=== PATIENT | male | born 1970 | race Hispanic/Latino ===

== ENCOUNTER 2019-10-03 07:53 | Day surgery (SDC) | payer SELFPAY ==
[2019-10-01 10:48] VITALS: BMI 29.6
[2019-10-03] MEDS ORDERED: Ondansetron PF 4 MG/2 ML Vial ONE (09:21)
[2019-10-03] MEDS ORDERED: Dexamethasone 20 MG/5 ML VIAL ONE (09:21)
[2019-10-03] MEDS ORDERED: Glycopyrrolate 0.2 MG/ML 5 ML SYRINGE ONE (09:21)
[2019-10-03] MEDS ORDERED: Lidocaine 1% PF 5 ML VIAL ONE (09:21)
[2019-10-03] MEDS ORDERED: Rocuronium Bromide 10 MG/ML (10ML VIAL) ONE (09:21)
[2019-10-03] MEDS ORDERED: PROPOFOL 200 MG/20 ML VIAL ONE (09:21)
[2019-10-03] MEDS ORDERED: Lidocaine 1% w/Epinephrine 1:100K 20 ML VIAL ONE (09:23)
[2019-10-03] MEDS ORDERED: EPINEPHrine 1 MG/ML AMP ONE (09:23)
[2019-10-03] MEDS ORDERED: Fentanyl 100 MCG/2 ML VIAL ONE ×3 (10:26→12:06)
[2019-10-03] MEDS ORDERED: Midazolam HCl 2 mg/2 ml Vial ONE (10:26)
--- NOTE | 2019-10-04 14:18 | OP ---
DATE OF PROCEDURE: 10/03/2019 PREOPERATIVE DIAGNOSIS: Large right neck mass. POSTOPERATIVE DIAGNOSES: 1. Large right neck mass. 2. Right branchial cleft cyst. PROCEDURES PERFORMED: 1. Excision of large right deep neck mass. 2. Direct laryngoscopy. 3. Excision of right branchial cleft cyst. PROCEDURE: After the consent was obtained, the patient was identified and brought to the operating room and placed on the operating room table in supine position. General endotracheal anesthesia was obtained. The patient underwent systematic laryngeal examination and no significant abnormalities were identified in the oropharynx, oral cavity, hypopharynx, and larynx. We then proceeded with prepping and draping the patient and positioned then for surgery. The area of intended incision was infiltrated with 1% lidocaine and 1:100,000 epinephrine. We then made an incision in the natural skin crease 2 fingerbreadths below the angle of the jaw and carried the incision down through the skin, subcutaneous tissues, and platysma. Subplatysmal flaps were elevated. We then identified the sternocleidomastoid muscle and dissected until the cystic mass was encountered. The mass was quite large and filled the submandibular space. The dissection continued down to the great vessels where a track was continued down towards the lateral pharyngeal wall. This was suture ligated as the excised intact and sent for histologic evaluation. Bleeding points were cauterized or suture ligated as they were encountered. Ultimately, the wound was closed with reapproximation of the strap muscles and dermis and closure of the skin with a permanent suture. The patient was then awakened. Sterile dressing was applied. The patient was taken to recovery room in stable condition prior to discharge home. Job ID: [id number]
--- NOTE | 2019-10-04 16:41 | EKG ---
Test Reason : PREOP Blood Pressure : / mmHG Vent. Rate : 049 BPM Atrial Rate : 049 BPM P-R Int : 140 ms QRS Dur : 084 ms QT Int : 420 ms P-R-T Axes : 086 029 024 degrees QTc Int : 379 ms Marked sinus bradycardia Low voltage QRS T wave abnormality, consider anterior ischemia Abnormal ECG Confirmed by DR. Celeste BEARD ([id number]) on 10/04/2019 4:41:17 PM Referred By: NERI Confirmed By:DR. Celeste BEARD
== END 2019-10-03 14:30 | disposition home or self-care (01) ==
LOC: SDC 07:53
PROVIDERS: ATTEND Specialist
DX: Q18.0 Sinus, fistula and cyst of branchial cleft (principal); F45.8 Other somatoform disorders; Z79.82 Long term (current) use of aspirin; Z79.899 Other long term (current) drug therapy; Z88.0 Allergy status to penicillin
CPT/HCPCS: 88304; 93005; 93010; J0171; J1100; J2250; J2405; J2704; J3010

== ENCOUNTER 2023-08-01 11:41 | Outpatient (CLI) | payer OTHER | END 2023-08-01 11:42 | disposition home or self-care (01) | LOC: SCSRAD 11:41 | PROVIDERS: ATTEND Family Medicine | DX: J39.2 Other diseases of pharynx (principal) | CPT/HCPCS: 70360 ==